=== PATIENT | female | born 1990 | race Caucasian/White ===

== ENCOUNTER → 2017-08-17 10:22 | Outpatient (CLI) | payer MEDICAID, SELFPAY ==
[2017-08-17 16:01] LABS: ALB/GLOB Ratio 1.1 RATIO (0.9-2.4); AST(SGOT) 10 U/L (15-37); Alanine Aminotransfer ALT/SGPT 19 U/L (13-56); Albumin, Serum 4.1 g/dL (3.2-5.0); Alkaline Phosphatase 109 U/L (45-117); Anion Gap 7 (5-15); BUN 15 mg/dL (7-18); BUN/Creat Ratio 24.9 RATIO (10-20); Calcium,Total 8.6 mg/dL (8.5-10.1); Chloride 106 mmol/L (98-107); Cholesterol 216 mg/dL (200); EST Glomerular Filtration Rate 126 mL/min (>60); Est Glom Filt Rate - Afr Amer 152 mL/min (>60); Globulin 3.6 g/dL (2.2-4.2); Glucose 75 mg/dL (74-106); High Density Lipoprotein 75 mg/dL; Potassium 3.7 mmol/L (3.5-5.1); Protein, Total 7.7 g/dL (6.4-8.2); Sodium Level 138 mmol/L (136-145); Thyroid Stim Hormone (TSH) 0.97 uIU/mL (0.358-3.74); Triglycerides 62 mg/dL; Very Low Density Lipoprotein 12 mg/dL (5-40)
[2017-08-18 09:00] LABS: Insulin 2.6 mU/L (2.6-37.6)
== END ==
PROVIDERS: Family Provider Family Medicine; PCP Family Medicine; Visit Provider Family Medicine
DX: E16.2 Hypoglycemia, unspecified (principal)
CPT/HCPCS: 36415; 80053; 80061; 82533; 83525; 84443

== ENCOUNTER → 2018-03-13 14:45 | Outpatient (CLI) | payer MEDICAID, SELFPAY ==
[2018-03-13 17:48] LABS: hCG Titer Quant., Serum 4551 mIU/mL (<9 non-preg)
== END ==
PROVIDERS: Family Provider Family Medicine; PCP Family Medicine; Visit Provider Family Medicine
DX: N91.2 Amenorrhea, unspecified (principal)
CPT/HCPCS: 36415; 84702

== ENCOUNTER → 2018-04-11 18:49 | Outpatient (CLI) | payer MEDICAID, SELFPAY ==
[2018-04-11 20:25] LABS: Chlamydia Trachomatis by PCR Negative (Negative); Neisserai gonorrhoeae by PCR Negative (Negative); Probe Check PASS; Sample Adequacy Control PASS; Specimen Processing Control PASS
[2018-04-19 13:51] LABS: HPV Reflexed? NOT INDICATED
== END ==
PROVIDERS: Referring Provider Obstetrics & Gynecology; Visit Provider Obstetrics & Gynecology
DX: Z12.4 Encounter for screening for malignant neoplasm of cervix (principal); Z11.3 Encounter for screening for infections with a predominantly sexual mode of transmission
CPT/HCPCS: 87491; 87591; 88175; G0145

== ENCOUNTER → 2018-04-25 14:11 | Outpatient (CLI) | payer MEDICAID, SELFPAY ==
[2018-04-25 15:52] LABS: Color, Urine Yellow (Yellow); Glucose, Dipstick Normal (Normal); Ketone-Dipstick Negative (Negative); Leukocyte Esterase-Dipstick Negative /ul (Negative); Nitrite-Dipstick Negative (Negative); Occult Blood-Urine Negative /ul (Negative); Protein-Dipstick Negative (Negative); Specific Gravity, Urine 1.015 (1.002-1.030); Urine Bilirubin Dipstick Negative (Negative); Urine Clarity Clear (Clear); Urine Urobilinogen Normal (Normal); Urine pH 6.5 (5.0 - 8.0)
[2018-04-25 15:58] LABS: Absolute Lymphocyte Count 1.31 X10^3/ul (0.83-4.51); Absolute Neutrophil Count 2.6 X10^3/uL (2.0-7.7); Basophil# 0.01 X10^3/uL; Basophil% 0.2 % (0-1); Eosinophil# 0.01 X10^3/uL; Eosinophils% 0.2 % (0-5); Hematocrit 39.3 % (37-47); Hemoglobin 12.8 g/dl (12.0-15.0); Lymphocyte # 1.31 X10^3/ul (4.0); Lymphocyte % 32.2 % (19-41); Mean Corp Hgb Conc 32.6 g/gl (32-36); Mean Platelet Vol. 10.7 fl (6.2-12.0); Monocyte# 0.16 X10^3/uL; Monocyte% 3.9 % (0-10); Neutrophil # 2.58 X10^3/uL (2.7-7.7); Neutrophil % 63.5 % (47-70); Platelet Count 186 K/mm3 (150-450); RBC Distribution Width CV 14.1 % (11.6-14.6); RBC Distribution Width SD 43.9 fl (35.1-43.9); Red Blood Count 4.57 M/mm3 (4.2-5.4); White Blood Count 4.1 K/mm3 (4.4-11.0)
[2018-04-25 16:01] LABS: POSITIVE COUNT NO; POSITIVE DIFFERENTIAL NO; POSITIVE MORPHOLOGY NO
[2018-04-25 16:08] LABS: COTININE Drug Screen Negative (<200 ng/mL)
[2018-04-25 16:13] LABS: Amphetamine Urine VISTA NEGATIVE (<1000 ng/mL); Barbiturate Urine VISTA POSITIVE (< 200 ng/mL); Benzodiazepine Urine VISTA NEGATIVE (< 200 ng/mL); Cocaine Urine VISTA NEGATIVE (< 300 ng/mL); Ecstacy Urine VISTA NEGATIVE (< 500 ng/mL); Methadone Urine VISTA NEGATIVE (< 300 ng/mL); PCP Urine VISTA NEGATIVE (< 25 ng/mL); THC Urine VISTA NEGATIVE (< 50 ng/mL); Vista UDS pH Range 6
[2018-04-25 16:51] LABS: HIV - WCH Non-Reactive (Nonreactive); Rubella IgG 223.9 IU/mL
[2018-04-27 04:13] LABS: Prenatal RPR NONREACTIVE (NONREACTIVE)
[2018-04-27 15:34] LABS: HEPATITIS B SURFACE AG Negative (Negative); Hep C Antibodies <0.1 s/co ratio (0.0-0.9)
== END ==
PROVIDERS: Visit Provider Obstetrics & Gynecology
DX: Z34.81 Encounter for supervision of other normal pregnancy, first trimester (principal)
CPT/HCPCS: 36415; 80307; 81002; 84443; 85025; 86703; 86762; 86803; 87340

== ENCOUNTER → 2018-04-26 09:32 | Outpatient (CLI) | payer MEDICAID, SELFPAY ==
[2018-04-26 12:16] LABS: T4 Free Direct 1.08 ng/dL (0.76-1.46)
== END ==
PROVIDERS: Visit Provider Family Medicine
DX: R79.89 Other specified abnormal findings of blood chemistry (principal)
CPT/HCPCS: 36415; 84439; 84443

== ENCOUNTER 2018-06-11 09:40 | Emergency (ER) | payer MEDICAID, SELFPAY ==
[2018-06-11 09:41] VITALS: BP 143/88; PULSE 100; RESP 24; TEMP 36.6; O2SAT 100; BMI 26.4
--- NOTE | 2018-06-11 10:04 | ED.VISSUMM ---
- ER Visit Summary Date of Service: 06/11/18 Chief Complaint: Headache History of Present Illness: The patient is a 28 F who is 18 weeks and has history of migraine headaches who presents for 2 days of a headache. Onset was 2 days ago and is gradually worsened. Headache is worse if patient bends forward. Patient tried her abortive therapy with Fioricet x2 doses yesterday without any relief. She is having intermittent left vision changes, described as the vision going in and out. She states it is like tunnel vision but she has not had complete loss of vision in that eye. She had a temperature of 100 degrees yesterday. She has nausea but does not know if that is due to morning sickness or her headache. No abdominal pain, vomiting, weakness or numbness in the arms or legs. Patient states this is not a typical migraine for her. Physical Examination: Vital signs: afebrile, hemodynamically stable, no hypoxia on room air General: well nourished, well developed, in bed with the lights on, appears uncomfortable Skin: warm, dry, no rash, no pallor HEENT: normocephalic and atraumatic; PERRL, EOMI, mild left ptosis, dural conjunctival injection, moist mucous membranes, no facial droop, neck is mildly tender on the left, supple, full active range of motion, no lymphadenopathy, no meningismus Cardiovascular: Tachycardic rate and rhythm without murmurs, no peripheral edema, 2+ pulses all distal extremities Respiratory: No increased work of breathing, lungs are clear to auscultation bilaterally, no rales, rhonchi or wheezing Abdominal: Abdomen is soft, gravid, nontender with normoactive bowel sounds, no guarding or rebound, no masses MSK: Moves all extremities, no deformities, normal strength Neuro: Awake and alert, oriented ?4. No facial droop, sensation and motor function intact and symmetric, normal gait, no visual field deficits, blurry vision left eye Test Results: Abnormal Lab Results 06/11/18 06/11/18 06/11/18 10:15 10:15 10:20 WBC 4.2 L RBC 4.12 L Hgb 11.8 L Hct 34.9 L MCV 84.7 MCH 28.6 MCHC 33.8 RDW 13.7 RDW Differential 42.1 Plt Count 144 L MPV 10.5 Immature Gran % (Auto) 0.000 Neut % (Auto) 67.8 Lymph % (Auto) 26.3 [place] % (Auto) 5.5 Eos % (Auto) 0.2 Baso % (Auto) 0.2 Absolute Neuts (auto) 2.8 Absolute Lymphs (auto) 1.10 Total Counted Not Reportable Sodium 138 Potassium 3.9 Chloride 110 H Carbon Dioxide 21.0 Anion Gap 7 BUN 9 Creatinine 0.48 L Estim Creat Clear Calc 149.33 Est GFR (MDRD) Af Amer 197 Est GFR (MDRD) Non-Af 163 BUN/Creatinine Ratio 18.8 Glucose 86 Calcium 8.5 Total Bilirubin 0.20 AST 17 ALT 15 Alkaline Phosphatase 64 Total Protein 6.5 Albumin 2.8 L Globulin 3.7 Albumin/Globulin Ratio 0.8 L Urine Color Yellow Urine Clarity Cloudy Urine pH 6.0 Ur Specific [place] 1.020 Urine Protein Negative Urine Glucose (UA) Normal Urine Ketones 5 H Urine Occult Blood Negative Urine Nitrite Negative Urine Bilirubin Negative Urine Urobilinogen 1 H Ur Leukocyte Esterase 100 H Urine RBC 0 SEEN Urine WBC 0-5 SEEN Ur Squamous Epith Cells 25-50 SEEN Urine Bacteria 2+ Urine Mucus 1+ Clinical Impression(s) from Imaging Studies Brain MRI 06/11/18 10:18 IMPRESSION: Normal unenhanced MRI of the brain. Electronically Signed: Sue Huertas MD at 13:38 EST Tel , Service support , Brain MRI 06/11/18 10:18 IMPRESSION: Normal unenhanced MRV of the brain. Electronically Signed: Sue Huertas MD at 13:39 EST Tel , Service support , Medications Given Discontinued Medications Diphenhydramine HCl (Benadryl) 25 mg IV X1 ONE Stop: 06/11/18 10:03 Last Admin: 06/11/18 10:17 Dose: 25 mg Sodium Chloride () 1,000 mls @ 999 mls/hr IV .Q1H1M ONE Stop: 06/11/18 11:02 Last Admin: 06/11/18 10:18 Dose: 999 mls/hr Metoclopramide HCl (Reglan) 10 mg IV X1 ONE Stop: 06/11/18 10:03 Last Admin: 06/11/18 10:17 Dose: 10 mg Emergency Department Course and Treatment: Patient presents with a headache with a left visual changes and is 18 weeks . This raises concern for cerebral venous thrombosis. Migraine headache is on the differential, however this is a typical for patient's migraines. She was given IV fluids for hydration, Benadryl and Reglan for treatment of the headache. Patient is mildly hypertensive, but is prior to when preeclampsia would be considered a concern. Labs were performed to look for any possible hepatic derangements or proteinuria. Concern for possible venous thrombosis was discussed with neurologist Dr. Gottlieb. He recommended an MRI/MRV be performed. This test was ordered, however the radiation protection technician stated OB permission must be obtained to do the study. Patient was discussed with radiologist Dr. Springer who approved the test. radiation protection technician still refused to do the study without OB permission. Thus Dr. Purcell was consulted, and gave permission for the MRI/MRV. Labs showed no leukocytosis or significant anemia. Platelets mildly low, but consistent with patient's prior labs. No electrolyte derangements or hepatic derangements. Urine was negative for proteinuria. It was highly contaminated with epithelial cells and had 2+ bacteria, which is likely due to the skin contamination rather than bacteriuria that would require antibiotic treatment in a female. Dry/MRV showed no acute process, including no venous thrombosis. On reevaluation patient's left eye pain, ptosis, and vision changes had completely resolved and her headache had improved. She was still having a headache and was offered IV magnesium or steroids for further treatment. She declined and stated she would follow-up with her doctor if she needed any further medications. She wanted to go home and rest. Patient's workup including the normal brain imaging makes her headache most consistent with a migraine. Patient discharged home in improved condition and is to follow-up with her family doctor and OB for reevaluation. Treatment Plan: [] Disposition: [] Impression: Migraine headache, second-trimester This note was generated with [employer] software. It may contain incorrect words, spelling, and punctuation that were not noted in review of the chart prior to signing ED Disposition - Plan for ED Patient: Disposition: Home or Assisted Living Chief Complaint: Headache Instructions: ED Headache Migraine Referrals: Mikael Purcell MD [STAFF PHYSICIAN] - 1-2 Days if not improving Tam Bailey [Primary Care Provider] - 1-2 Days if not improving Additional Instructions: Please follow-up with your doctor in 1-2 days if you are not having improvement in your headache. If you have any worsening of your headache or any new concerning symptoms, return immediately to the emergency department for another evaluation.
--- NOTE | 2018-06-11 10:10 | ED.DCSUM_ITS ---
- ER Visit Summary Date of Service: 06/11/18 Chief Complaint: Headache History of Present Illness: The patient is a 28 F who is 18 weeks and has history of migraine headaches who presents for 2 days of a headache. Onset was 2 days ago and is gradually worsened. Headache is worse if patient bends forward. Patient tried her abortive therapy with Fioricet x2 doses yesterday without any relief. She is having intermittent left vision changes, described as the vision going in and out. She states it is like tunnel vision but she has not had complete loss of vision in that eye. She had a temperature of 100 degrees yesterday. She has nausea but does not know if that is due to morning sickness or her headache. No abdominal pain, vomiting, weakness or numbness in the arms or legs. Patient states this is not a typical migraine for her. Physical Examination: Vital signs: afebrile, hemodynamically stable, no hypoxia on room air General: well nourished, well developed, in bed with the lights on, appears uncomfortable Skin: warm, dry, no rash, no pallor HEENT: normocephalic and atraumatic; PERRL, EOMI, mild left ptosis, dural conjunctival injection, moist mucous membranes, no facial droop, neck is mildly tender on the left, supple, full active range of motion, no lymphadenopathy, no meningismus Cardiovascular: Tachycardic rate and rhythm without murmurs, no peripheral edema, 2+ pulses all distal extremities Respiratory: No increased work of breathing, lungs are clear to auscultation bilaterally, no rales, rhonchi or wheezing Abdominal: Abdomen is soft, gravid, nontender with normoactive bowel sounds, no guarding or rebound, no masses MSK: Moves all extremities, no deformities, normal strength Neuro: Awake and alert, oriented ?4. No facial droop, sensation and motor function intact and symmetric, normal gait, no visual field deficits, blurry vision left eye Test Results: Abnormal Lab Results 06/11/18 06/11/18 06/11/18 10:15 10:15 10:20 WBC 4.2 L RBC 4.12 L Hgb 11.8 L Hct 34.9 L MCV 84.7 MCH 28.6 MCHC 33.8 RDW 13.7 RDW Differential 42.1 Plt Count 144 L MPV 10.5 Immature Gran % (Auto) 0.000 Neut % (Auto) 67.8 Lymph % (Auto) 26.3 [place] % (Auto) 5.5 Eos % (Auto) 0.2 Baso % (Auto) 0.2 Absolute Neuts (auto) 2.8 Absolute Lymphs (auto) 1.10 Total Counted Not Reportable Sodium 138 Potassium 3.9 Chloride 110 H Carbon Dioxide 21.0 Anion Gap 7 BUN 9 Creatinine 0.48 L Estim Creat Clear Calc 149.33 Est GFR (MDRD) Af Amer 197 Est GFR (MDRD) Non-Af 163 BUN/Creatinine Ratio 18.8 Glucose 86 Calcium 8.5 Total Bilirubin 0.20 AST 17 ALT 15 Alkaline Phosphatase 64 Total Protein 6.5 Albumin 2.8 L Globulin 3.7 Albumin/Globulin Ratio 0.8 L Urine Color Yellow Urine Clarity Cloudy Urine pH 6.0 Ur Specific [place] 1.020 Urine Protein Negative Urine Glucose (UA) Normal Urine Ketones 5 H Urine Occult Blood Negative Urine Nitrite Negative Urine Bilirubin Negative Urine Urobilinogen 1 H Ur Leukocyte Esterase 100 H Urine RBC 0 SEEN Urine WBC 0-5 SEEN Ur Squamous Epith Cells 25-50 SEEN Urine Bacteria 2+ Urine Mucus 1+ Clinical Impression(s) from Imaging Studies Brain MRI 06/11/18 10:18 IMPRESSION: Normal unenhanced MRI of the brain. Electronically Signed: Sue Huertas MD at 13:38 EST Tel , Service support , Brain MRI 06/11/18 10:18 IMPRESSION: Normal unenhanced MRV of the brain. Electronically Signed: Sue Huertas MD at 13:39 EST Tel , Service support , Medications Given Discontinued Medications Diphenhydramine HCl (Benadryl) 25 mg IV X1 ONE Stop: 06/11/18 10:03 Last Admin: 06/11/18 10:17 Dose: 25 mg Sodium Chloride () 1,000 mls @ 999 mls/hr IV .Q1H1M ONE Stop: 06/11/18 11:02 Last Admin: 06/11/18 10:18 Dose: 999 mls/hr Metoclopramide HCl (Reglan) 10 mg IV X1 ONE Stop: 06/11/18 10:03 Last Admin: 06/11/18 10:17 Dose: 10 mg Emergency Department Course and Treatment: Patient presents with a headache with a left visual changes and is 18 weeks . This raises concern for cerebral venous thrombosis. Migraine headache is on the differential, however this is a typical for patient's migraines. She was given IV fluids for hydration, Benadryl and Reglan for treatment of the headache. Patient is mildly hypertensive, but is prior to when preeclampsia would be considered a concern. Labs were performed to look for any possible hepatic derangements or proteinuria. Concern for possible venous thrombosis was discussed with neurologist Dr. Gottlieb. He recommended an MRI/MRV be performed. This test was ordered, however the deburr technician stated OB permission must be obtained to do the study. Patient was discussed with radiologist Dr. Springer who approved the test. deburr technician still refused to do the study without OB permission. Thus Dr. Purcell was consulted, and gave permission for the MRI/MRV. Labs showed no leukocytosis or significant anemia. Platelets mildly low, but consistent with patient's prior labs. No electrolyte derangements or hepatic derangements. Urine was negative for proteinuria. It was highly contaminated with epithelial cells and had 2+ bacteria, which is likely due to the skin contamination rather than bacteriuria that would require antibiotic treatment in a female. Dry/MRV showed no acute process, including no venous thrombosis. On reevaluation patient's left eye pain, ptosis, and vision changes had completely resolved and her headache had improved. She was still having a headache and was offered IV magnesium or steroids for further treatment. She declined and stated she would follow-up with her doctor if she needed any further medications. She wanted to go home and rest. Patient's workup including the normal brain imaging makes her headache most consistent with a migraine. Patient discharged home in improved condition and is to follow-up with her family doctor and OB for reevaluation. Treatment Plan: [] Disposition: [] Impression: Migraine headache, second-trimester This note was generated with [employer] software. It may contain incorrect words, spelling, and punctuation that were not noted in review of the chart prior to signing ED Disposition - Plan for ED Patient: Disposition: Home or Assisted Living Chief Complaint: Headache Instructions: ED Headache Migraine Referrals: Mikael Purcell MD [STAFF PHYSICIAN] - 1-2 Days if not improving Tam Bailey [Primary Care Provider] - 1-2 Days if not improving Additional Instructions: Please follow-up with your doctor in 1-2 days if you are not having improvement in your headache. If you have any worsening of your headache or any new concerning symptoms, return immediately to the emergency department for another evaluation.
[2018-06-11] MEDS: DiphenhydrAMINE 50 MG/ML Syringe 25 MG IV (10:17)
[2018-06-11] MEDS: Metoclopramide 10 MG/2 ML Vial IV (10:17)
[2018-06-11] MEDS: 0.9% Normal Saline 1,000 ML 999 ML IV (10:18)
--- NOTE | 2018-06-11 10:18 | MRI_ITS ---
STUDY: MRI BRAIN WITHOUT CONTRAST REASON FOR EXAM: Female, 28 years old. L SIDED HEADACHE WITH INTERMITTENT VISION LOSS, 18 WEEKS TECHNIQUE: Standardized multiplanar fat and water weighted pulse sequences were obtained. COMPARISON: None. FINDINGS: Normal size of the ventricles and extra-axial spaces for the patient's age. Normal white matter tracts of the supratentorial brain. Normal bilateral basal ganglia. Normal thalami. There is no extra-axial fluid accumulation. Normal flow voids within the major intracranial circulation suggesting patency by spin echo criteria. Normal sella turcica, pituitary gland, infundibular stalk, optic chiasm and hypothalamus. Normal tectal plate and pineal gland. Normal midbrain, elsa and medulla. Normal cerebellum. Normal basal cisterns. Normal bilateral temporal bones. Normal bilateral internal auditory canals. No demonstrated orbital abnormality, within the constraints of a routine brain study. Normal visualized paranasal sinuses. Normal calvarium and skull base. Normal visualized soft tissue structures. Normal visualized upper cervical spine. MRI/Brain without Contrast IMPRESSION: Normal unenhanced MRI of the brain. Electronically Signed: Sue Huertas MD at 13:38 EST Tel , Service support ,
--- NOTE | 2018-06-11 10:18 | MRI_ITS ---
STUDY: EXAMINATION - MRV BRAIN WITHOUT CONTRAST REASON FOR EXAM: Female, 28 years old. L SIDED HEADACHE WITH INTERMITTENT VISION LOSS, 18 WEEKS TECHNIQUE: 3D [id number] (TOF) imaging was performed in a bella MRI scanner. COMPARISON: None. FINDINGS: Normal flow within the superior sagittal sinus. Normal flow within the superficial cortical veins. Normal flow within the paired internal cerebral veins, vein of Tru and straight sinus. Normal flow within the bilateral transverse and sigmoid sinuses. Normal flow within the bilateral jugular bulbs. MRI/MRV Head Without Contrast IMPRESSION: Normal unenhanced MRV of the brain. Electronically Signed: Sue Huertas MD at 13:39 EST Tel , Service support ,
[2018-06-11 10:26] VITALS: BP 140/76
[2018-06-11 10:26] LABS: Red Blood Cells-Urine 0 SEEN /hpf (0-5)
[2018-06-11 10:30] LABS: Color, Urine Yellow (Yellow); Glucose, Dipstick Normal (Normal); Ketone-Dipstick 5 mg/dl (Negative); Leukocyte Esterase-Dipstick 100 /ul (Negative); Nitrite-Dipstick Negative (Negative); Occult Blood-Urine Negative /ul (Negative); Protein-Dipstick Negative (Negative); Urine Bilirubin Dipstick Negative (Negative); Urine Clarity Cloudy (Clear); Urine Urobilinogen 1 mg/dl (Normal)
[2018-06-11 10:31] LABS: Absolute Neutrophil Count 2.8 X10^3/uL (2.0-7.7); Basophil# 0.01 X10^3/uL; Basophil% 0.2 % (0-1); Eosinophil# 0.01 X10^3/uL; Eosinophils% 0.2 % (0-5); Hematocrit 34.9 % (37-47); Hemoglobin 11.8 g/dl (12.0-15.0); Lymphocyte % 26.3 % (19-41); Mean Corp Hgb Conc 33.8 g/gl (32-36); Mean Corpuscular Hgb 28.6 pg (27.0-32.0); Mean Corpuscular Volume 84.7 fL (81-99); Mean Platelet Vol. 10.5 fl (6.2-12.0); Monocyte# 0.23 X10^3/uL; Monocyte% 5.5 % (0-10); Neutrophil # 2.83 X10^3/uL (2.7-7.7); Neutrophil % 67.8 % (47-70); POSITIVE COUNT NO; POSITIVE DIFFERENTIAL NO; POSITIVE MORPHOLOGY NO; Platelet Count 144 K/mm3 (150-450); RBC Distribution Width CV 13.7 % (11.6-14.6); RBC Distribution Width SD 42.1 fl (35.1-43.9); Red Blood Count 4.12 M/mm3 (4.2-5.4); White Blood Count 4.2 K/mm3 (4.4-11.0)
[2018-06-11 10:36] LABS: White Blood Cells 0-5 SEEN /hpf (0-5)
[2018-06-11 10:37] LABS: Bacteria 2+ /hpf (None Seen); Mucous, Urine 1+ /hpf (<or=2+); Squamous Epithelial Cells - UA 25-50 SEEN /hpf (5-10)
[2018-06-11 10:46] LABS: ALB/GLOB Ratio 0.8 RATIO (0.9-2.4); AST(SGOT) 17 U/L (15-37); Alanine Aminotransfer ALT/SGPT 15 U/L (13-56); Albumin, Serum 2.8 g/dL (3.2-5.0); Alkaline Phosphatase 64 U/L (45-117); Anion Gap 7 (5-15); BUN 9 mg/dL (7-18); BUN/Creat Ratio 18.8 RATIO (10-20); Calcium,Total 8.5 mg/dL (8.5-10.1); Chloride 110 mmol/L (98-107); Creatinine, Serum 0.48 mg/dL (0.55-1.02); EST Glomerular Filtration Rate 163 mL/min (>60); Est Glom Filt Rate - Afr Amer 197 mL/min (>60); Estimated Creatinine Clearance 149.33 ml/min; Globulin 3.7 g/dL (2.2-4.2); Glucose 86 mg/dL (74-106); Potassium 3.9 mmol/L (3.5-5.1); Protein, Total 6.5 g/dL (6.4-8.2); Sodium Level 138 mmol/L (136-145)
--- NOTE | 2018-06-11 10:49 | ED.RN ---
PER RECOMMENDATION OF NEUROLOGIST AND ED PHYSICIAN, MRI WAS ORDERED FOR PT. 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 RADIOLOGIST WAS CONTACTED AND HE STATED THAT IMAGING WAS SAFE FOR FETUS AND THAT IMAGING WAS ALLOWABLE. MRI MAINTAINED THAT THE OBGYN STILL NEEDED TO BE CONSULTED BEFORE PT COULD GO TO MRI. DR. SANCHEZ WAS PAGED AND VERBAL PERMISSION WAS GIVEN FOR PT TO RECEIVE MRI.
[2018-06-11 14:25] VITALS: RESP 18
--- NOTE | 2018-06-11 14:50 | ED.DEP ---
ED Disposition - Plan for ED Patient: Disposition: Home or Assisted Living Chief Complaint: Headache Instructions: ED Headache Migraine Referrals: Tam Bailey [Primary Care Provider] - 1-2 Days if not improving Mikael Purcell MD [STAFF PHYSICIAN] - 1-2 Days if not improving Additional Instructions: Please follow-up with your doctor in 1-2 days if you are not having improvement in your headache. If you have any worsening of your headache or any new concerning symptoms, return immediately to the emergency department for another evaluation.
[2018-06-11 14:56] VITALS: BP 131/76; PULSE 76; RESP 16; O2SAT 97
[2018-06-11 15:07] VITALS: BP 117/74; PULSE 71; RESP 18; O2SAT 99
[2018-06-11 15:10] VITALS: BP 117/74; PULSE 71; RESP 18; O2SAT 99
== END 2018-06-11 15:10 | disposition home or self-care (01) ==
PROVIDERS: Emergency Provider Emergency Medicine; Family Provider Family Medicine; PCP Family Medicine
DX: O99.352 Diseases of the nervous system complicating pregnancy, second trimester (principal); G43.909 Migraine, unspecified, not intractable, without status migrainosus; Z3A.18 18 weeks gestation of pregnancy
CPT/HCPCS: 70544; 70551; 80053; 81001; 85025; 99285; J7030; A4216

== ENCOUNTER 2018-07-23 08:53 | Outpatient (RCR) | payer MEDICAID, SELFPAY ==
[2018-07-16 18:02] LABS: hCG Titer Quant., Serum 64 mIU/mL (<9 non-preg)
[2018-07-23 12:24] LABS: hCG Titer Quant., Serum 23 mIU/mL (<9 non-preg)
== END 2018-08-02 23:59 ==
LOC: BFHLAB 08:53
PROVIDERS: Family Provider Family Medicine; PCP Family Medicine; Referring Provider Obstetrics & Gynecology; Visit Provider Family Medicine
DX: O02.0 Blighted ovum and nonhydatidiform mole (principal)
CPT/HCPCS: 36415; 84702

== ENCOUNTER → 2018-07-30 08:42 | Outpatient (CLI) | payer MEDICAID, SELFPAY ==
[2018-07-30 12:25] LABS: hCG Titer Quant., Serum 12 mIU/mL (<9 non-preg)
== END ==
PROVIDERS: Family Provider Family Medicine; PCP Family Medicine; Visit Provider Family Medicine
DX: O02.0 Blighted ovum and nonhydatidiform mole (principal); Z3A.00 Weeks of gestation of pregnancy not specified
CPT/HCPCS: 36415; 84702

== ENCOUNTER 2018-08-13 07:55 | Outpatient (RCR) | payer MEDICAID, SELFPAY ==
[2018-07-30 16:40] VITALS: BMI 26.4
[2018-08-06 12:49] LABS: hCG Titer Quant., Serum 6 mIU/mL (<9 non-preg)
[2018-08-13 13:14] LABS: hCG Titer Quant., Serum 4 mIU/mL (<9 non-preg)
[2018-08-20 12:55] LABS: hCG Titer Quant., Serum 2 mIU/mL (<9 non-preg)
[2018-08-27 13:04] LABS: hCG Titer Quant., Serum 2 mIU/mL (<9 non-preg)
[2018-09-10 13:45] LABS: hCG Titer Quant., Serum < 1 mIU/mL (<9 non-preg)
== END 2018-08-30 23:59 ==
LOC: BFHLAB 07:55
PROVIDERS: Obstetrics & Gynecology; Family Provider Family Medicine; PCP Family Medicine; Visit Provider Family Medicine
DX: O02.0 Blighted ovum and nonhydatidiform mole (principal)
CPT/HCPCS: 36415; 84702

== ENCOUNTER 2018-09-04 10:14 | Outpatient (RCR) | payer MEDICAID, SELFPAY ==
[2018-07-30 16:40] VITALS: BMI 26.4
[2018-09-04 18:14] LABS: hCG Titer Quant., Serum 1 mIU/mL (<9 non-preg)
[2018-09-17 12:49] LABS: hCG Titer Quant., Serum < 1 mIU/mL (<9 non-preg)
[2018-09-24 10:56] LABS: hCG Titer Quant., Serum < 1 mIU/mL (<9 non-preg)
== END 2018-09-24 15:00 | disposition home or self-care (01) ==
LOC: BFHLAB 10:14
PROVIDERS: Family Provider Family Medicine; PCP Family Medicine; Visit Provider Family Medicine
DX: O02.0 Blighted ovum and nonhydatidiform mole (principal)
CPT/HCPCS: 36415; 84702

== ENCOUNTER → 2018-11-13 09:43 | Outpatient (CLI) | payer SELFPAY ==
[2018-07-30 16:40] VITALS: BMI 26.4
[2018-11-13 12:35] LABS: hCG Titer Quant., Serum < 1 mIU/mL (1-3)
== END ==
PROVIDERS: Family Provider Family Medicine; PCP Family Medicine; Visit Provider Family Medicine
DX: O02.0 Blighted ovum and nonhydatidiform mole (principal)
CPT/HCPCS: 36415; 84702

== ENCOUNTER → 2019-01-21 09:03 | Outpatient (CLI) | payer SELFPAY ==
[2018-07-30 16:40] VITALS: BMI 26.4
[2019-01-21 12:40] LABS: hCG Titer Quant., Serum < 1 mIU/mL (1-3)
== END ==
PROVIDERS: Family Provider Family Medicine; PCP Family Medicine; Visit Provider Family Medicine
DX: O02.0 Blighted ovum and nonhydatidiform mole (principal)
CPT/HCPCS: 36415; 84702

== ENCOUNTER → 2020-01-23 08:14 | Outpatient (CLI) | payer SELFPAY ==
[2018-07-30 16:40] VITALS: BMI 26.4
[2020-01-23 08:59] LABS: T4 Free Direct 0.83 ng/dL (0.76-1.46); Thyroid Stim Hormone (TSH) 0.71 uIU/mL (0.358-3.74)
== END ==
LOC: BFHLAB 08:15
PROVIDERS: PCP Family Medicine; Visit Provider Family Medicine
DX: R63.5 Abnormal weight gain (principal); R53.83 Other fatigue
CPT/HCPCS: 36415; 82533; 84439; 84443

== ENCOUNTER → 2020-10-19 14:13 | Outpatient (CLI) | payer MEDICAID, SELFPAY ==
[2018-07-30 16:40] VITALS: BMI 26.4
--- NOTE | 2020-10-19 14:16 | RAD_ITS ---
STUDY: X-RAY - LUMBAR SPINE REASON FOR EXAM: Female, 30 years old. LOW BACK PAIN TECHNIQUE: 5 view(s) of the lumbar spine were obtained including oblique views. COMPARISON: Comparison is made with prior study of 11/29/2011. FINDINGS: Normal lumbar lordosis. There is no substantial scoliosis. There is a normal alignment of the vertebrae. Normal vertebral bodies and endplates. Normal disc space heights. Degenerative changes of the sacroiliac joints more prominent on the right side. The soft tissue structures are unremarkable. RAD/L/S Spine Min 4 Views IMPRESSION: Normal x-ray examination of the lumbar spine. Degenerative changes of the sacroiliac joints bilaterally more prominent on the right side. Electronically Signed: Dalton Springer MD at 15:46 EDT , Service support ,
== END ==
PROVIDERS: PCP Family Medicine; Referring Provider Family Medicine; Visit Provider Family Medicine
DX: M54.5 Low back pain (principal)
CPT/HCPCS: 72110

== ENCOUNTER → 2020-10-27 09:23 | Outpatient (CLI) | payer MEDICAID, SELFPAY ==
[2018-07-30 16:40] VITALS: BMI 26.4
[2020-10-27 12:55] LABS: Erythrocyte Sedimentation Rate 5 mm/hr (0-30)
[2020-10-27 12:58] LABS: Absolute Neutrophil Count 1.4 X10^3/uL (2.0-7.7); Basophil# 0.01 X10^3/uL; Basophil% 0.3 % (0-1); Eosinophil# 0.02 X10^3/uL; Eosinophils% 0.7 % (0-5); Hematocrit 37.6 % (37-47); Hemoglobin 12.4 g/dL (12.0-15.0); Lymphocyte % 45.6 % (19-41); Mean Corpuscular Hgb 28.2 pg (27.0-32.0); Mean Corpuscular Volume 85.6 fL (81-99); Mean Platelet Vol. 10.7 fl (6.2-12.0); Monocyte# 0.22 X10^3/uL; Monocyte% 7.2 % (0-10); NRBC Flagged by Analyzer 0 % (0-5); Neutrophil # 1.41 X10^3/uL (2.7-7.7); Neutrophil % 45.9 % (47-70); Platelet Count 188 K/mm3 (150-450); RBC Distribution Width CV 12.8 % (11.6-14.6); Red Blood Count 4.39 M/mm3 (4.2-5.4); White Blood Count 3.1 K/mm3 (4.4-11.0)
[2020-10-27 13:41] LABS: ALB/GLOB Ratio 1.1 RATIO (0.9-2.4); AST(SGOT) 13 U/L (15-37); Alanine Aminotransfer ALT/SGPT 18 U/L (13-56); Albumin, Serum 3.9 g/dL (3.2-5.0); Alkaline Phosphatase 63 U/L (45-117); Anion Gap 7 (5-15); BUN 9 mg/dL (7-18); BUN/Creat Ratio 14.5 RATIO (10-20); CRP < 2.90 mg/L (0.0-3.0); Calcium,Total 8.9 mg/dL (8.5-10.1); Chloride 108 mmol/L (98-107); Creatinine, Serum 0.62 mg/dL (0.55-1.02); EST Glomerular Filtration Rate 119 mL/min (>60); Est Glom Filt Rate - Afr Amer 144 mL/min (>60); Globulin 3.5 g/dL (2.2-4.2); Glucose 85 mg/dL (74-106); Potassium 3.3 mmol/L (3.5-5.1); Protein, Total 7.4 g/dL (6.4-8.2); Rheumatoid Factor < 10.0 IU/mL (<15); Sodium Level 138 mmol/L (136-145); T4 Free Direct 0.94 ng/dL (0.76-1.46); Thyroid Stim Hormone (TSH) 0.67 uIU/mL (0.358-3.74)
[2020-10-27 14:05] LABS: Vitamin B12 350 pg/mL (211-911); Vitamin D,25 Hydroxy 15.8 ng/mL
[2020-10-28 17:13] LABS: ANTINUCLEAR ANTIBODIES DIRECT Negative (Negative)
[2020-11-02 16:59] LABS: HLA B27 Negative (.)
== END ==
PROVIDERS: PCP Family Medicine; Referring Provider Family Medicine; Visit Provider Family Medicine
DX: Z00.00 Encounter for general adult medical examination without abnormal findings (principal); R53.83 Other fatigue; M46.1 Sacroiliitis, not elsewhere classified; E27.40 Unspecified adrenocortical insufficiency
CPT/HCPCS: 36415; 80053; 81374; 82306; 82533; 82607; 84439; 84443; 85025; 85652; 86038; 86140; 86225; 86235; 86431

== ENCOUNTER → 2022-07-01 | Outpatient (CLI) | payer MEDICAID, SELFPAY ==
[2022-07-01 15:43] LABS: hCG Titer Quant., Serum 702 mIU/mL (1-3)
== END | disposition home or self-care (01) ==
LOC: MTLAB 13:56
PROVIDERS: PCP Family Medicine; Referring Provider Family Medicine; Visit Provider Family Medicine
DX: N91.2 Amenorrhea, unspecified (principal)
CPT/HCPCS: 36415; 84702

== ENCOUNTER → 2022-08-04 | Outpatient (CLI) | payer MEDICAID, SELFPAY ==
[2022-08-04 16:33] LABS: Protein, Urine (Random) 11.6 mg/dL (<11.9); Protein:Creat Ratio 76 mg/g CRE (0-200)
[2022-08-08 07:07] LABS: Chlamydia By Nucleic Acid AMP Negative (Negative)
[2022-08-08 08:32] LABS: Gonococcus By Nucleic Acid AMP Negative (Negative)
[2022-08-11 17:45] LABS: HPV APTIMA, High Risk Negative (Negative)
== END | disposition home or self-care (01) ==
LOC: LABSPEC 15:52
PROVIDERS: PCP Family Medicine; Referring Provider Obstetrics & Gynecology; Visit Provider Obstetrics & Gynecology
DX: Z34.90 Encounter for supervision of normal pregnancy, unspecified, unspecified trimester (principal); Z87.59 Personal history of other complications of pregnancy, childbirth and the puerperium
CPT/HCPCS: 82570; 84156; 87086; 87491; 87591; 87624; 88175; G0145

== ENCOUNTER → 2022-08-30 | Outpatient (CLI) | payer MEDICAID, SELFPAY ==
[2022-08-30 14:27] LABS: Absolute Lymphocyte Count 1.36 X10^3/uL (0.83-4.51); Absolute Neutrophil Count 3.4 X10^3/uL (2.0-7.7); Basophil# 0.01 X10^3/uL; Basophil% 0.2 % (0-1); Eosinophil# 0.02 X10^3/uL; Eosinophils% 0.4 % (0-5); Hemoglobin 11.8 g/dL (12.0-15.0); Lymphocyte # 1.36 X10^3/ul (0.83-4.51); Lymphocyte % 26.9 % (19-41); Mean Corp Hgb Conc 34.7 g/dL (32-36); Mean Corpuscular Hgb 29.6 pg (27.0-32.0); Mean Corpuscular Volume 85.4 fL (81-99); Mean Platelet Vol. 9.4 fl (6.2-12.0); Monocyte# 0.25 X10^3/uL; Monocyte% 4.9 % (0-10); NRBC Flagged by Analyzer 0 % (0-5); Neutrophil # 3.41 X10^3/uL (2.7-7.7); Neutrophil % 67.4 % (47-70); Platelet Count 202 K/mm3 (150-450); RBC Distribution Width CV 12.7 % (11.6-14.6); RBC Distribution Width SD 39.1 fl (35.1-43.9); Red Blood Count 3.98 M/mm3 (4.2-5.4); White Blood Count 5.1 K/mm3 (4.4-11.0)
[2022-08-30 15:08] LABS: ALB/GLOB Ratio 0.9 RATIO (0.9-2.4); AST(SGOT) 16 U/L (15-37); Alanine Aminotransfer ALT/SGPT 15 U/L (13-56); Albumin, Serum 3.5 g/dL (3.2-5.0); Alkaline Phosphatase 64 U/L (45-117); Anion Gap 10 (5-15); BUN 8 mg/dL (7-18); BUN/Creat Ratio 16.3 RATIO (10-20); Calcium,Total 9.5 mg/dL (8.5-10.1); Chloride 107 mmol/L (98-107); Creatinine, Serum 0.49 mg/dL (0.55-1.02); EST Glomerular Filtration Rate 154 mL/min (>60); Est Glom Filt Rate - Afr Amer 186 mL/min (>60); Globulin 3.9 g/dL (2.2-4.2); Glucose 86 mg/dL (74-106); Potassium 3.5 mmol/L (3.5-5.1); Protein, Total 7.4 g/dL (6.4-8.2); Sodium Level 139 mmol/L (136-145)
[2022-08-30 15:15] LABS: NATERA MAILED SPECIMEN
[2022-08-30 16:21] LABS: HIV - WCH Non-Reactive (Nonreactive); Hepatitis B Surface Antigen Non-Reactive (Nonreactive); Hepatitis C Antibody Non-Reactive (Nonreactive); Rubella IgG Reactive (Nonreactive); Syphilis Antibodies Non-reactive
== END | disposition home or self-care (01) ==
LOC: PAVLAB 14:11
PROVIDERS: PCP Family Medicine; Referring Provider Obstetrics & Gynecology; Visit Provider Obstetrics & Gynecology
DX: Z34.81 Encounter for supervision of other normal pregnancy, first trimester (principal); Z34.90 Encounter for supervision of normal pregnancy, unspecified, unspecified trimester
CPT/HCPCS: 36415; 80053; 85025; 86703; 86762; 86780; 86803; 86850; 86900; 86901; 87340

== ENCOUNTER → 2022-12-16 | Outpatient (CLI) | payer MEDICAID, SELFPAY ==
[2022-12-16 13:37] LABS: Absolute Lymphocyte Count 0.94 X10^3/uL (0.83-4.51); Absolute Neutrophil Count 3.4 X10^3/uL (2.0-7.7); Basophil# 0.01 X10^3/uL; Basophil% 0.2 % (0-1); Eosinophil# 0.03 X10^3/uL; Eosinophils% 0.6 % (0-5); Hematocrit 29.9 % (37-47); Lymphocyte # 0.94 X10^3/ul (0.83-4.51); Lymphocyte % 20.1 % (19-41); Mean Corp Hgb Conc 33.4 g/dL (32-36); Mean Corpuscular Hgb 28.7 pg (27.0-32.0); Mean Corpuscular Volume 85.9 fL (81-99); Mean Platelet Vol. 9.7 fl (6.2-12.0); Monocyte% 6.4 % (0-10); NRBC Flagged by Analyzer 0 % (0-5); Neutrophil # 3.38 X10^3/uL (2.7-7.7); Neutrophil % 72.3 % (47-70); Platelet Count 218 K/mm3 (150-450); RBC Distribution Width CV 13.2 % (11.6-14.6); RBC Distribution Width SD 40.8 fl (35.1-43.9); Red Blood Count 3.48 M/mm3 (4.2-5.4); White Blood Count 4.7 K/mm3 (4.4-11.0)
[2022-12-16 14:08] LABS: Glucose Challenge Gest 1H 50g 130 mg/dL (70-140)
[2022-12-16 14:45] LABS: HIV - WCH Non-Reactive (Nonreactive); Syphilis Antibodies Non-reactive
== END | disposition home or self-care (01) ==
LOC: LAB 13:05
PROVIDERS: PCP Family Medicine; Referring Provider Obstetrics & Gynecology; Visit Provider Obstetrics & Gynecology
DX: O26.899 Other specified pregnancy related conditions, unspecified trimester (principal); Z67.91 Unspecified blood type, Rh negative; Z3A.00 Weeks of gestation of pregnancy not specified
CPT/HCPCS: 36415; 82950; 85025; 86703; 86780

== ENCOUNTER → 2022-12-23 | Outpatient (CLI) | payer MEDICAID, SELFPAY | END | disposition home or self-care (01) | LOC: PAVLAB 09:46 | PROVIDERS: Obstetrics & Gynecology; PCP Family Medicine; Visit Provider Obstetrics & Gynecology | DX: O26.899 Other specified pregnancy related conditions, unspecified trimester (principal); Z67.91 Unspecified blood type, Rh negative; Z3A.00 Weeks of gestation of pregnancy not specified | CPT/HCPCS: 86850; 86870; 86900; 86901 ==

== ENCOUNTER → 2023-02-10 | Outpatient (CLI) | payer MEDICAID, SELFPAY | END | disposition home or self-care (01) | PROVIDERS: PCP Family Medicine; Referring Provider Obstetrics & Gynecology; Visit Provider Obstetrics & Gynecology | DX: O09.90 Supervision of high risk pregnancy, unspecified, unspecified trimester (principal); Z3A.00 Weeks of gestation of pregnancy not specified | CPT/HCPCS: 87081 ==

== ENCOUNTER → 2023-02-13 | Outpatient (CLI) | payer MEDICAID, SELFPAY ==
--- NOTE | 2023-02-13 14:28 | US_ITS ---
STUDY: SECOND AND THIRD TRIMESTER OBSTETRICAL ULTRASOUND - LIMITED REASON FOR EXAM: Female, 32 years old growth LMP: May 30, 2022. PRIOR ULTRASOUND: None. TECHNIQUE: TECHNICAL QUALITY: Adequate. FINDINGS: There is a single intrauterine fetus. The fetus is in a cephalic presentation. There is demonstrated cardiac activity with a heart rate of 143 bpm. There is a normal amniotic fluid volume. The largest amniotic fluid pocket measures 4.2 cm x 3.1 cm. The amniotic fluid index (SMITHA) is 14.8 cm. The placenta is anterior in location and is not low lying. There are Grade 2 placental changes. The cervical length was not measured due to the head position. BIOMETRY: BPD: 9.81 cm: 40 weeks, 1 days HC: 34.95 cm: 40 weeks, 5 days AC: 35.07 cm: 39 weeks, 0 days FL: 7.46 cm: 38 weeks, 1 days Age by LMP: 37 weeks, 0 days. VIN by LMP: March 06, 2023. age by prior US: 37 weeks, 4 days. VIN by prior US: March 02, 2023. age by current US: 39 weeks, 2 days. VIN by current US: February 18, 2023. Estimated weight: 3707 grams, +/- 556 grams, 95 percentile. US/OB Limited With Biometrics IMPRESSION: Single live think uterine gestation with a mean gestational age of 37 weeks and 4 days. The measurements obtained today fall within the upper limits of normal. Electronically Signed: Dalton Springer MD at 9:12 EDT ,
== END | disposition home or self-care (01) ==
LOC: US 14:27
PROVIDERS: PCP Family Medicine; Referring Provider Obstetrics & Gynecology; Visit Provider Obstetrics & Gynecology
DX: O36.60X0 Maternal care for excessive fetal growth, unspecified trimester, not applicable or unspecified (principal); Z3A.00 Weeks of gestation of pregnancy not specified
CPT/HCPCS: 76816

== ENCOUNTER 2023-02-28 05:30 | Inpatient (IN) | payer MEDICAID, SELFPAY ==
[2023-02-28] VITALS (18 sets, daily range): BP systolic 91–115; BP diastolic 39–78; PULSE 53–100; RESP 16–18; TEMP 36.1–37.2; O2SAT 96–100; BMI 34.2
[2023-02-28] MEDS: Lactated Ringers 1,000 ML 999 ML IV (05:55)
[2023-02-28 06:13] LABS: Absolute Lymphocyte Count 1.13 X10^3/uL (0.83-4.51); Absolute Neutrophil Count 2.7 X10^3/uL (2.0-7.7); Basophil# 0.01 X10^3/uL; Basophil% 0.2 % (0-1); Eosinophil# 0.02 X10^3/uL; Eosinophils% 0.5 % (0-5); Hematocrit 33.6 % (37-47); Hemoglobin 10.8 g/dL (12.0-15.0); Lymphocyte # 1.13 X10^3/ul (0.83-4.51); Lymphocyte % 27.5 % (19-41); Mean Corp Hgb Conc 32.1 g/dL (32-36); Mean Corpuscular Hgb 28.6 pg (27.0-32.0); Mean Corpuscular Volume 88.9 fL (81-99); Mean Platelet Vol. 11.2 fl (6.2-12.0); Monocyte# 0.28 X10^3/uL; Monocyte% 6.8 % (0-10); NRBC Flagged by Analyzer 0 % (0-5); Neutrophil # 2.66 X10^3/uL (2.7-7.7); Neutrophil % 64.8 % (47-70); Platelet Count 122 K/mm3 (150-450); RBC Distribution Width CV 15.4 % (11.6-14.6); RBC Distribution Width SD 50.6 fl (35.1-43.9); Red Blood Count 3.78 M/mm3 (4.2-5.4); White Blood Count 4.1 K/mm3 (4.4-11.0)
[2023-02-28] MEDS: Acetaminophen 500 MG Tablet 1000 MG PO ×3 (06:28→18:04)
[2023-02-28] MEDS: Lactated Ringers 1,000 ML 150 ML IV ×2 (07:00→12:10)
--- NOTE | 2023-02-28 07:12 | HP.PCM.OB_ITS ---
HPI - General General Date of Admission: 02/28/23 HPI Narrative AMALIA JOHNS, is a 32 y/o @ 39 weeks 1 day who presents to L&D for a repeat section. Maternal Data Information VIN Calculator Estimated Delivery Date Method Current WG Current Estimate 03/06/23 LMP (Certain) 39w 1d [facility] PFS Medical History Anxiety and depression Asthma History of molar Hx: UTI (urinary tract infection) depression Home Medications multivit-min no.71-iron fum 28 mg-folate no.1 1 mg-dha 300 mg capsule (PNV- [place]) cap PO 07/26/22 [History Last Taken 02/27/23 09:00] ferrous sulfate 325 mg (65 mg iron) tablet (FeroSul) 325 mg PO DAILY supplement #30 tabs 12/16/22 [Rx Last Taken 02/27/23 21:00] folic acid 1 mg tablet 3 mg (3 x 1 mg) PO DAILY #90 tabs 01/13/23 [Rx Last Taken Unknown] folic acid 1 mg tablet 3 mg PO DAILY molar 01/13/23 [History Last Taken 02/27/23 09:00] famotidine 40 mg tablet (Pepcid) 40 mg PO BID gerd #60 tabs 02/15/23 [Rx Last Taken 02/27/23 21:30] Allergy/AdvReac Type Severity Reaction Status Date / Time Penicillins Allergy Itching Verified 02/28/23 05:45 Family History Unknown Diabetes Surgical History delivery delivered dilation and evacuation History of dilation and curettage History of wisdom tooth extraction, class II edentulism Social History adopted: No household members: spouse and children housing: house number of children: 2 current occupational status: employed current occupation: babysitting current occupational exposures/hazards: No pets and animals: Yes (Not managing litterbox while ) pets and animals: cat(s) and dog(s) history of recent travel: No sexually active: Yes Smoking Status: Former smoker alcohol intake: current details: social- not while substance use type: does not use well-balanced diet: daily or most days caffeine: No eating out: 1-3 times/week during the past year weight has: remained stable what type of physical activity do you participate in: none stefany/buddhism: None seatbelt use: always do you feel safe at home: Yes additional social history: Manav- History 5 Elective abortions Hx Para 2 Spontaneous abortions 2 Hx # Term Pregnancies 2 Ectopic pregnancies Hx # Pregnancies Multiple births # of living children 2 Past Pregnancies Del. Date Name GA/Weeks Outcome Route Bth Weight Gen Labor Lgth Anesthesia Del Locatn Provider FOB Unknown 2014 Javi live - full term [facility] Unknown 2016 Nehemias live - full term [facility] 09/14/15 miscarriage @ 9 wks 07/03/17 Ruperto- miscarriage 21 wks Delivery Date: 07/03/17 Last Updated by: Liane Vargas molar and aneuploidy Visit Details Expected Delivery Route/Plan RLTCS discussed if interested. 47% chance of success. Plans Covid status: discussed Flu vaccine: discussed Tdap vaccine: [] Rhogam: [] LARC form signed: [] Problem list reviewed and updated with the most current plan of care details and appropriate orders placed. Relevant counseling for the gestational age provided. Continue routine care and follow up unless otherwise noted in visit notes/problem list details OB Flowsheet Initial Weight: 187 lb Date -?-?-?-?-?-?-?-?-?-?-?-?- EGA Weight BP Urine Prot -?-?-?-?-?-?-?-?-?-?-?-?- Glucose FHR FuHt Pres Dilation -?-?-?-?-?-?-?-?-?-?-?-?- Effaced St Visit Note 08/04/22 -?-?-?-?-?-?-?-?-?-?-?-?- 9w 3d 187 lb (+0 oz) 121/78 -?-?-?-?-?-?-?-?-?-?-?-?- 170 -?-?-?-?-?-?-?-?-?-?-?-?- SM- CRL 2.5 cm c ons with LMP 08/30/22 -?-?-?-?-?-?-?-?-?-?-?-?- 13w 1d 189 lb (+2 lb) 119/77 Negative -?-?-?-?-?-?-?-?-?-?-?-?- Negative 160 -?-?-?-?-?-?-?-?-?-?-?-?- SM- no vb crampi ng 09/27/22 -?-?-?-?-?-?-?-?-?-?-?-?- 17w 1d 187 lb 6 oz (+6 oz) 120/76 Negative -?-?-?-?-?-?-?-?-?-?-?-?- Negative 154 -?-?-?-?-?-?-?-?-?-?-?-?- MH-No Vb. Denies concerns. 10/25/22 -?-?-?-?-?-?-?-?-?-?-?-?- 21w 1d 192 lb 2 oz (+5 lb 2 oz) 112/80 Negative -?-?-?-?-?-?-?-?-?-?-?-?- Negative 146 -?-?-?-?-?-?-?-?-?-?-?-?- MH-No VB. Feelin g flutters. Struggling w other illnesses:cold, strep throat. Does in home daycare. Stressed PNV, good diet. 11/24/22 -?-?-?-?-?-?-?-?-?-?-?-?- 25w 3d 194 lb 6 oz (+7 lb 6 oz) 111/72 Negative -?-?-?-?-?-?-?-?-?-?-?-?- Negative 145 -?-?-?-?-?-?-?-?-?-?-?-?- JV- no lof, vagi nal bleeding, or dec fm. plan for gct and rhogam next visit. JV- no lof, vaginal bleeding , or dec fm. plan for gct and rhogam next visit. repeat section request sent. 12/16/22 -?-?-?-?-?-?-?-?-?-?-?-?- 28w 4d 195 lb (+8 lb) 112/72 Negative -?-?-?-?-?-?-?-?-?-?-?-?- Negative 135 29 -?-?-?-?-?-?-?-?-?-?-?-?- JV- rhogam and g ct today. no complaints. discussed that she wants to see if labor starts on it's own and if does wants to attempt . otherwise rpt section is scheduled. 12/30/22 -?-?-?-?-?-?-?-?-?-?-?-?- 30w 4d 194 lb 4 oz (+7 lb 4 oz) 114/70 Negative -?-?-?-?-?-?-?-?-?-?-?-?- Negative 140 31 -?-?-?-?-?-?-?-?-?-?-?-?- KW- +FM. No lof/ vb/ctx. had reaction to Tdap. still having discoloration of the arm. LARC done 01/13/23 -?-?-?-?-?-?-?-?-?-?-?-?- 32w 4d 195 lb 2 oz (+8 lb 2 oz) 110/70 Trace -?-?-?-?-?-?-?-?-?-?-?-?- Negative 142 33 -?-?-?-?-?-?-?-?-?-?-?-?- KW-+FM. no lof/v b/ctx. No concerns today. 01/27/23 -?-?-?-?-?-?-?-?-?-?-?-?- 34w 4d 198 lb 6 oz (+11 lb 6 oz) 110/71 Negative -?-?-?-?-?-?-?-?-?-?-?-?- Negative 145 35 -?-?-?-?-?-?-?-?-?-?-?-?- JV- pt is reques ting growth scan to help her make up her mind about vs rpt section. no lof, vaginal bleeding, or dec fm. 02/10/23 -?-?-?-?-?-?-?-?-?-?-?-?- 36w 4d 197 lb 8 oz (+10 lb 8 oz) 107/68 Negative -?-?-?-?-?-?-?-?-?-?-?-?- Negative 150 36 -?-?-?--?-?-?-?-?-?-?-?-?- SM- no vb lof go od fm no regular ctx gbs done 02/15/23 -?-?-?-?-?-?-?-?-?-?-?-?- 37w 2d 196 lb 8 oz (+9 lb 8 oz) 105/57 -?-?-?-?-?-?-?-?-?-?-?-?- 145 38 -?-?-?-?-?-?-?-?-?-?-?-?- JV- no lof, vagi nal bleeding, or cramping. no complaints other than indigestion. starting pepcid. 02/24/23 -?-?-?-?-?-?-?-?-?-?-?-?- 38w 4d 199 lb 8 oz (+12 lb 8 oz) 120/79 Negative -?-?-?-?-?-?-?-?-?-?-?-?- Negative 122 38 -?-?-?-?-?-?-?-?-?-?-?-?- JV- no lof, vagi nal bleeding, or dec fm. Notes Visit Date: 01/27/23 Last Updated by: Hollie Ortega, q ROS Constitutional Constitutional: Denies change in weight, fatigue, fever(s), headache(s), poor appetite or weakness Eyes Eyes: Denies blurry vision, change in vision, seeing flashes or spots in vision ENT HEENT: Denies dizziness, headache(s), loss taste/smell or sore throat Cardiovascular Cardiovascular: Denies chest pain, dizziness, dyspnea, irregular heart rhythm, leg edema, palpitations, rapid heart rate or vomiting Respiratory/Chest Respiratory/Chest: Denies chest tightness, cough, dyspnea or breast pain Gastrointestinal Gastrointestinal: Denies abdominal pain, anorexia, constipation, cramping, diarrhea, hemorrhoids, vomiting or weight changes Genitourinary Genitourinary: Denies dysuria, flank pain, genital lesions, genital pain, ur inary frequency or urinary urgency Musculoskeletal Musculoskeletal: Denies back pain, difficulty walking, joint pain, limited range of motion, muscle cramps or numbness Integumentary Integumentary: Denies lesions or unusual bruising Neurologic Neurologic: Denies abnormal movements, abnormal speech, dizziness, numbness, seizure-like activity or syncope Psychiatric Psychiatric: Denies anxiety, behavioral changes, change in appetite, change in libido, cognitive impairment, confusion, depression, difficulty concentrating, hallucinations or suicidal thoughts Endocrine Endocrinology: Denies excessive sweating, polydipsia or polyuria Hematologic/Lymphatic Hematologic/Lymphatic: Denies easy bleeding, easy bruising or lymphadenopathy Allergic/Immunologic Allergic/Immunologic: Denies itchy eyes, lip swelling, seasonal rhinorrhea, rhinitis, throat swelling, tongue swelling, eczemia, wheezing or asthma Vital Signs Vital Signs Vital Signs: 02/28/23 06:05 02/28/23 05:46 02/28/23 05:46 Temperature 98.2 F Temperature Source Temporal Temporal Pulse Rate 100 Respiratory Rate 18 Blood Pressure 114/78 Blood Pressure Mean 90 BP Systolic BP Diastolic Blood Pressure Source Monitor Blood Pressure Position Semi-Fowlers Blood Pressure Location Right Arm Pulse Ox 99 99 Oxygen Delivery Method Room Air 02/28/23 05:46 Temperature Temperature Source Pulse Rate Respiratory Rate Blood Pressure 114/78 Blood Pressure Mean BP Systolic 114 BP Diastolic 78 Blood Pressure Source Blood Pressure Position Blood Pressure Location Pulse Ox Oxygen Delivery Method Weight Weight: 199 lb 11.821 oz Body Mass Index (BMI) 34.2 Physical Exam Const alert, oriented x3, no apparent distress and healthy appearing General Appearance: cooperative; Negative for anxious HEENT normocephalic Face and Sinus: normal facial exam Eyes EOMs intact bilaterally and no scleral icterus General Eye: normal appearance of both eyes Neck full ROM and supple Lymph Lymphatic: no lymphadenopathy noted Chest Chest: abnormal inspection of the chest Resp normal respiratory effort Effort and Inspection: able to speak in complete sentences Cardio regular rate GI soft to palpation and non-tender Inspection: gravid Palpation: soft; Negative for tender Back/Spine no CVA tenderness Extremity normal to inspection, full ROM and no clubbing, cyanosis or edema General Extremity: Negative for calf tenderness or edema Skin Lesions: no lesions Rashes: no rashes Psych mental status grossly normal Labs Labs Labs: Blood Type O NEGATIVE Antibody Screen POSITIVE Hct 33.6 % (37-47) L Hgb 10.8 g/dL (12.0-15.0) L Obstetrics US Syphilis Total Ab Non-reactive Rubella IgG Antibody Reactive (Nonreactive) Hep Bs Antigen Non-Reactive (Nonreactive) Chlamydia DNA (ROCIO) Negative (Negative) Neisseria gonorrhoeae DNA (ROCIO) Negative (Negative) HIV 1&2 Antibody Non-Reactive (Nonreactive) Glucose 1 Hr 50 gm 130 mg/dL (70-140) Group B Strep DNA Negative (Negative) Rhogam given: No Miscellaneous Test Assessment & Plan (1) Anti-D antibodies present during : COMMENT: veronica too weak to titer (2) Anemia: COMMENT: hg 10, starting iron 12/16/22 (3) Rh negative state in antepartum period: COMMENT: Rhogam 28 wk, pp and prn bleeding (4) Stillborn, abnormal: COMMENT: multiple health problems product of molar - spina bifida, heart defect, aneuploidy. nl NIPT and encouraged 4 mg folic acid daily. (5) History of 2 sections: COMMENT: RLTCS scheduled for 02/28 @ 7:10 with JV- scheduled in the case spontaneous labor does not happen. may even want to push back to 40 or 41 week. ( pt not decided) PLAN: After discussing the patient's diagnosis and treatment plan options, patient wishes to proceed with surgical management. I have discussed with the patient the risks, benefits, and alternatives of the procedure which include but are not limited to risks of anesthesia, bleeding, infection, possible damage to bowel, bladder, or surrounding vasculature which could lead to additional surgery to evaluate any complications. Patient agrees to procedure and wishes to proceed. (6) History of gestational hypertension: COMMENT: last 2018 (7) Supervision of high risk , antepartum: COMMENT: PRR , VIN 03/06/23(gender surprise) Nehemias Méndez([place] 21 weeks) Manav (8) : QUALIFIERS: Weeks of gestation: 38 weeks Qualified Code(s): Z3A.38 - 38 weeks gestation of COMMENT: GBS negative. NIPT low risk, declined carrier testing, RH negative, anatomy nl (9) History of molar : COMMENT: repeat hcg 6 weeks (10) Anxiety and depression: COMMENT: plan for wellbutrin after delivery
[2023-02-28] MEDS: Sodium Citrate/Citric Acid 30 ML UDC PO (07:13)
[2023-02-28] MEDS: Clindamycin 900 MG/50 ML BAG 75 MG IV (08:20)
[2023-02-28 08:35] LABS: Syphilis Antibodies Non-reactive
--- NOTE | 2023-02-28 08:45 | EX.PCM.OBRPT ---
Assessment & Plan (1) Anti-D antibodies present during : COMMENT: veronica too weak to titer (2) Anemia: COMMENT: hg 10, starting iron 12/16/22 (3) Rh negative state in antepartum period: COMMENT: Rhogam 28 wk, pp and prn bleeding (4) Stillborn, abnormal: COMMENT: multiple health problems product of molar - spina bifida, heart defect, aneuploidy. nl NIPT and encouraged 4 mg folic acid daily. (5) History of 2 sections: COMMENT: RLTCS scheduled for 02/28 @ 7:10 with JV- scheduled in the case spontaneous labor does not happen. may even want to push back to 40 or 41 week. ( pt not decided) (6) History of gestational hypertension: COMMENT: last 2018 (7) Supervision of high risk , antepartum: COMMENT: PRR , VIN 03/06/23(gender surprise) PC Nehemias Caldwell([place] 21 weeks) Manav (8) : QUALIFIERS: Weeks of gestation: 38 weeks Qualified Code(s): Z3A.38 - 38 weeks gestation of COMMENT: GBS negative. NIPT low risk, declined carrier testing, RH negative, anatomy nl (9) History of molar : COMMENT: repeat hcg 6 weeks (10) Anxiety and depression: COMMENT: plan for wellbutrin after delivery Maternal Data Information VIN Calculator Estimated Delivery Date Method Current WG Current Estimate 03/06/23 LMP (Certain) 39w 1d Final VIN: 03/06/23 Final VIN Source: LMP Gestational age: 39 weeks 1 days Details Operative Information Date of Procedure: 02/28/23 Pre-Operative Diagnosis: 32 y/o @ 39 weeks 1 day, prior sections, for repeat Post-Operative Diagnosis: 32 y/o @ 39 weeks 1 day, prior sections, for repeat, uterine artery laceration, broad ligament hematoma Classification: Scheduled Procedure Type: low transverse fire alarm installer #1: Lourdes Lira fire alarm installer #2: Ashley Wright Type of Anesthesia: Spinal Estimated Blood Loss: 1000cc Findings Description of Procedure: The patient is a 32 y/o who presented for repeat . Spinal anesthesia was placed without difficulty. Mcgill catheter was placed. The patient was placed in the dorsal supine position with leftward tilt. Patient was prepped and draped in the normal sterile fashion. Pfannenstiel skin incision was made with the scalpel and carried through to the underlying layer of fascia with the scalpel. Fascia was nicked in the midline and the incision extended laterally. The rectus bellies were dissected off superiorly and inferiorly with out complication both sharply and bluntly. The peritoneum was entered digitally. The incision was stretched and a low transverse uterine incision was made with the scalpel through the first layer of uterine tissue. The rest of the incision was opened digitally. The water bag was left in place and the 's head was delivered atraumatically followed by the anterior and posterior shoulders without complication the rest of the infant delivered. The cord was clamped and cut and the infant was handed off to awaiting nurse. The placenta was delivered manually immediately following and was noted to be intact and have a three-vessel cord. The uterus was exteriorized cleared of all clots and debris The left uterine artery was noted to be spewing blood rapidly. This was repaired using a 1-0 vicryl suture. The remaining incision was closed in a double layer closure using #1 Vicryl and #1 Monocryl. The ovaries and fallopian tubes were noted to be within normal limits. However, a large broad ligament hematoma was noted to be forming. A uterine artery ligation was performed using a 1-0 pds x 3 to slow the spread of the hematoma. The hematomoa was then watched for approximately 10 minutes prior to returning the uterus to the abdomen. The uterus was returned to the maternal abdomen and gutters were cleared of all clots and debris. The hematoma appeared to be enlarging more and the uterus was re-exteriorized. A 4th suture was placed more proximally around the uterine artery and this time the hematoma was noted to be getting smaller. The uterus was gained returned to the abdomen. Clark was applied over suture sites that were slightly oozing. The peritoneum was closed with 3-0 Monocryl in a running fashion. Gloves were changed prior to fascial closure. Fascia was closed with 0 PDS in a running fashion. Subcutaneous tissue was copiously irrigated and the skin was closed with 3-0 Monocryl in a subcuticular fashion. Mepilex dressing was applied without complication. Patient was taken to recovery in stable condition. It was discussed with the patient that based on the clinical information obtained during this encounter, combined with her history, at this time I would recommend repeat for future deliveries if further pregnancies are desired. Presentation: Positive for Vertex Amniotic Membrane Rupture Type: Spontaneous Amniotic Fluid Description: Clear Placental Delivery Description: Manual Removal Placenta Disposition: [facility] Cord Vessel Description: 3 Vessels Cord Entanglement: None A Gender: Male (1 minute): 8 (5 minute): 9 Delayed Cord Clamping: Yes Complications Risks of Surgery Discussed w/Patient: Bleeding, Anesthesia Risks, Need for Future C-Sections and Injury to surrounding structure(s) including bowel and bladder Multi Select Codes Urinary/Genital Urinary/Genital CPT Codes: 57146 Delivery global pkg and Other Procedure See Report
[2023-02-28] MEDS: Methylergonovine 0.2 MG/ML Ampul IM (08:55)
[2023-02-28] MEDS: Oxytocin 15 Units/NS 250ml 15 UNITS/250 ML IV.SOLN 83 UNITS IV (09:00)
[2023-02-28] MEDS: Ketorolac 30 MG/ML Syringe IV ×3 (09:53→21:20)
[2023-02-28 09:57] LABS: Absolute Lymphocyte Count 0.69 X10^3/uL (0.83-4.51); Absolute Neutrophil Count 2.5 X10^3/uL (2.0-7.7); Basophil# 0.01 X10^3/uL; Basophil% 0.3 % (0-1); Eosinophil# 0.01 X10^3/uL; Eosinophils% 0.3 % (0-5); Hematocrit 29.1 % (37-47); Hemoglobin 9.6 g/dL (12.0-15.0); Lymphocyte # 0.69 X10^3/ul (0.83-4.51); Lymphocyte % 20.2 % (19-41); Mean Corpuscular Hgb 29.4 pg (27.0-32.0); Mean Platelet Vol. 10.4 fl (6.2-12.0); Monocyte# 0.22 X10^3/uL; Monocyte% 6.5 % (0-10); NRBC Flagged by Analyzer 0 % (0-5); Neutrophil # 2.47 X10^3/uL (2.7-7.7); Neutrophil % 72.4 % (47-70); Platelet Count 110 K/mm3 (150-450); RBC Distribution Width CV 15.3 % (11.6-14.6); RBC Distribution Width SD 49.7 fl (35.1-43.9); Red Blood Count 3.27 M/mm3 (4.2-5.4); White Blood Count 3.4 K/mm3 (4.4-11.0)
[2023-02-28] MEDS: Senna/Docusate Sodium 1 Tablet PO (10:52)
[2023-02-28] MEDS: Ferrous Sulfate 325 MG Tablet PO (10:52)
[2023-02-28] MEDS: Famotidine 20 MG Tablet 40 MG PO ×2 (10:52→21:21)
--- NOTE | 2023-02-28 11:12 | NURSING ---
IBCLC round with mother. Mother reports baby nursed very well after delivery but had to go to SCN for hypoglycemia. Reports staff had her pump in the hospital with her other children and had an oversupply and would like to not pump unless she has to. Would like to nurse if at all possible. We discussed the importance of pumping if the baby does not nurse but also report that if baby nurses well in the SCN she may not have to pump and that I would let her requests known to SCN staff. Pump shown and reviewed but because the patient did just nurse her baby 1 hour ago she would like to wait to initiate pumping until 12:30/1pm. Patient reports she already has a pump at home for home use.
[2023-02-28] MEDS: 0.9% Saline Lock 10 ML Syringe IV (21:21)
[2023-02-28] MEDS: Enoxaparin 40 MG/0.4 ML Syringe SC (21:21)
[2023-03-01] VITALS (12 sets, daily range): BP systolic 89–121; BP diastolic 41–68; PULSE 62–78; RESP 15–106; TEMP 36.1–37.1; O2SAT 97–100
[2023-03-01] MEDS: Acetaminophen 500 MG Tablet 1000 MG PO ×4 (00:04→18:00)
[2023-03-01] MEDS: LACTATED RINGERS 500 ML 999 ML IV (00:45)
[2023-03-01] MEDS: 0.9% Saline Lock 10 ML Syringe IV ×2 (03:19→12:37)
[2023-03-01] MEDS: Ketorolac 30 MG/ML Syringe IV (03:19)
[2023-03-01 03:33] LABS: Hematocrit 27.8 % (37-47); Hemoglobin 8.8 g/dL (12.0-15.0); Mean Corp Hgb Conc 31.7 g/dL (32-36); Mean Corpuscular Hgb 28.7 pg (27.0-32.0); Mean Corpuscular Volume 90.6 fL (81-99); Platelet Count 101 K/mm3 (150-450); RBC Distribution Width CV 15.6 % (11.6-14.6); RBC Distribution Width SD 51.5 fl (35.1-43.9); Red Blood Count 3.07 M/mm3 (4.2-5.4); White Blood Count 5.3 K/mm3 (4.4-11.0)
[2023-03-01] MEDS: Ferrous Sulfate 325 MG Tablet PO (09:12)
[2023-03-01] MEDS: Naproxen 500 MG Tablet PO ×2 (09:12→17:28)
--- NOTE | 2023-03-01 09:34 | PN.OBGYN_ITS ---
Subjective Subjective Patient is laying in bed comfortably without complaints. She states that she slept on an off during the night. Lochia is mild and pain is minimal. Objective Data Objective Data Vital Signs: Vital Signs Temp Pulse Resp BP Pulse Ox O2 Del Method 98.2 F 67 16 106/56 L 97 Room Air 03/01/23 09:15 03/01/23 09:15 03/01/23 09:15 03/01/23 09:15 03/01/23 03:18 03/01/23 09:15 Oxygen Delivery Method Room Air Weight: 199 lb 11.821 oz Body Mass Index (BMI) 34.2 Intake & Output: Intake and Output for Last 24 Hours 02/27/23 02/28/23 03/01/23 23:59 23:59 23:59 Intake Total 3066 / 3066 500 / 500 Output Total 1400 / 1400 600 / 600 Balance 1666 / 1666 -100 / -100 Lab / Micro Data 03/01/23 03:25 Labs: Laboratory Results - last 24 hr 02/28/23 05:55: Crossmatch See Detail 02/28/23 09:40: WBC 3.4 L, RBC 3.27 L, Hgb 9.6 L, Hct 29.1 L, MCV 89.0, MCH 29.4, MCHC 33.0, RDW Std Deviation 49.7 H, RDW Coeff of Carline 15.3 H, Plt Count 110 L, MPV 10.4, Immature Gran % (Auto) 0.300, Neut % (Auto) 72.4 H, Lymph % (Auto) 20.2, [place] % (Auto) 6.5, Eos % (Auto) 0.3, Baso % (Auto) 0.3, Absolute Neuts (auto) 2.5, Absolute Lymphs (auto) 0.69 L, Nucleated RBC % 0, Screen NEGATIVE, Baby's Blood Type O POSITIVE, Baby's [place]IEGO NEGATIVE 03/01/23 03:25: WBC 5.3, RBC 3.07 L, Hgb 8.8 L, Hct 27.8 L, MCV 90.6, MCH 28.7, MCHC 31.7 L, RDW Std Deviation 51.5 H, RDW Coeff of Carline 15.6 H, Plt Count 101 L, MPV 11.0 ROS Constitutional Constitutional: Reports systems reviewed and no addt'l complaints, except as documented Cardiovascular Cardiovascular: Denies chest pain, dizziness, dyspnea or irregular heart rhythm Respiratory/Chest Respiratory/Chest: Denies cough, pain on inspiration or shortness of breath at rest Gastrointestinal Gastrointestinal: Denies abdominal pain, nausea or vomiting Genitourinary Genitourinary: Denies burning urination Musculoskeletal Musculoskeletal: Denies muscle cramps, muscle spasms or muscle weakness Neurologic Neurologic: Denies confusion, dizziness, headache(s) or lack of coordination Psychiatric Psychiatric: Denies anxiety, behavioral changes or depression Physical Exam HEENT normocephalic Resp normal respiratory effort and normal air movement GI soft to palpation, non-tender and non-distended Rectal Exam: other Other Details: Incision is clean, dry, and intact no CVA tenderness Extremity normal to inspection General Extremity: edema bilateral (trace ) Assessment & Plan (1) Anemia: COMMENT: hg 10, starting iron 12/16/22 (2) Status post delivery: PLAN: Plan s/p LTCS PPD #1 1. routine post care 2. breast feeding- support given 3. rh positive 4. rubella immune 5. acute blood loss anemia- hg down to 8.8 and patient lost 1000 blood with hematoma of left uterine artery. transfusing 2 units now.
[2023-03-01] MEDS: Senna/Docusate Sodium 1 Tablet PO (10:05)
[2023-03-01] MEDS: Famotidine 20 MG Tablet 40 MG PO ×2 (10:05→22:18)
[2023-03-01] MEDS: Prenatal Vits Tablet 1 TABLET PO (12:35)
[2023-03-01 18:32] LABS: Absolute Lymphocyte Count 0.83 X10^3/uL (0.83-4.51); Absolute Neutrophil Count 5.2 X10^3/uL (2.0-7.7); Basophil# 0.01 X10^3/uL; Basophil% 0.2 % (0-1); Eosinophil# 0.03 X10^3/uL; Eosinophils% 0.5 % (0-5); Hematocrit 33.8 % (37-47); Hemoglobin 10.7 g/dL (12.0-15.0); Lymphocyte # 0.83 X10^3/ul (0.83-4.51); Lymphocyte % 12.7 % (19-41); Mean Corp Hgb Conc 31.7 g/dL (32-36); Mean Corpuscular Hgb 29.4 pg (27.0-32.0); Mean Corpuscular Volume 92.9 fL (81-99); Mean Platelet Vol. 11.2 fl (6.2-12.0); Monocyte% 6.1 % (0-10); NRBC Flagged by Analyzer 0 % (0-5); Neutrophil # 5.22 X10^3/uL (2.7-7.7); Neutrophil % 79.7 % (47-70); Platelet Count 121 K/mm3 (150-450); RBC Distribution Width CV 15.5 % (11.6-14.6); RBC Distribution Width SD 52.3 fl (35.1-43.9); Red Blood Count 3.64 M/mm3 (4.2-5.4); White Blood Count 6.5 K/mm3 (4.4-11.0)
[2023-03-02] MEDS: Acetaminophen 500 MG Tablet 1000 MG PO ×3 (00:06→13:08)
[2023-03-02] MEDS: 0.9% Saline Lock 10 ML Syringe IV (00:13)
[2023-03-02] MEDS: Naproxen 500 MG Tablet PO ×2 (02:15→11:29)
[2023-03-02 02:48] VITALS: BP 115/61; PULSE 69; RESP 16; O2SAT 98
--- NOTE | 2023-03-02 08:15 | PN.OBGYN_ITS ---
Subjective Subjective Patient doing well without complaints. Tolerating PO. Ambulating and voiding without difficulty. feeding well. Denies chest pain, shortness of breath, calf pain/swelling, fevers, chills, lightheadedness. Objective Data Objective Data Vital Signs: Vital Signs Temp Pulse Resp BP Pulse Ox O2 Del Method 97.2 F L 69 16 115/61 98 Room Air 03/01/23 19:46 03/02/23 02:48 03/02/23 02:48 03/02/23 02:48 03/02/23 02:48 03/02/23 02:48 Oxygen Delivery Method Room Air Weight: 199 lb 11.821 oz Body Mass Index (BMI) 34.2 Intake & Output: Intake and Output for Last 24 Hours 02/28/23 03/01/23 03/02/23 23:59 23:59 23:59 Intake Total 3066 / 3066 1400 / 1400 Output Total 1400 / 1400 600 / 600 Balance 1666 / 1666 800 / 800 Lab / Micro Data 03/01/23 18:15 Labs: Laboratory Results - last 24 hr 02/28/23 05:55: Crossmatch See Detail 03/01/23 18:15: WBC 6.5, RBC 3.64 L, Hgb 10.7 L, Hct 33.8 L, MCV 92.9, MCH 29.4, MCHC 31.7 L, RDW Std Deviation 52.3 H, RDW Coeff of Carline 15.5 H, Plt Count 121 L, MPV 11.2, Immature Gran % (Auto) 0.800, Neut % (Auto) 79.7 H, Lymph % (Auto) 12.7 L, [place] % (Auto) 6.1, Eos % (Auto) 0.5, Baso % (Auto) 0.2, Absolute Neuts (auto) 5.2, Absolute Lymphs (auto) 0.83, Nucleated RBC % 0 ROS Constitutional Constitutional: Reports systems reviewed and no addt'l complaints, except as documented Cardiovascular Cardiovascular: Reports systems reviewed and no addt'l complaints, except as documented Respiratory/Chest Respiratory/Chest: Reports systems reviewed and no addt'l complaints, except as documented Gastrointestinal Gastrointestinal: Reports systems reviewed and no addt'l complaints, except as documented Physical Exam Const alert, oriented x3 and no apparent distress HEENT Head and Scalp: atraumatic Resp normal respiratory effort GI soft to palpation and non-tender Inspection: incision intact, healing well and drainage (none) Bimanual Exam - Vag & Uterus: uterus non-tender Uterus Palpation: uterus fundus firm (below Umbilicus) Assessment & Plan (1) Status post delivery: PLAN: Plan s/p LTCS PPD # 1. routine post care 2. breast feeding- support given 3. rh neg 4. rubella immune
--- NOTE | 2023-03-02 08:16 | PCM.DC ---
Discharge Instructions Diet Discharge Diet: No restrictions Activity Discharge Activity: May Not Drive (for 2 weeks or while taking narcotic pain medications.), May Shower and May Take a Tub Bath (in 7 days) May shower in (days): 0 May resume sexual activity in: 4-6 weeks Weight Bearing Status: Full weight bearing Lifting Restrictions: 20 pounds Dressing / Incision Call your doctor if your incision/area has: Continuous Slow Oozing, Sudden Increased Bleeding, Increased Pain/ Swelling, Increased Redness and Foul Smelling Discharge Call your doctor if you observe: Fever of 101 or Higher and Using more than 1 pad per hour (for 2 hours) Suture Line Care: Avoid Pulling/Pushing and Avoid Pinching/Bending Cleanse incision/area with: Soap & Water and Keep Dressing Clean & Dry Follow Up Care Please Follow Up With: Bere Dee MD When: Call [phone] to make an appointment for an incision check in 1-2 weeks. Test Results: Test results from this visit will be discussed in further detail at your follow-up appointment, if applicable. Discharge Plan Admission Admit Date/Time: 02/28/23 05:30 Attending Provider: Hollie Ortega Primary Care Provider: Tam Bailey Discharge Orders/Prescriptions Prescriptions: New oxycodone-acetaminophen [Percocet] 5-325 mg tablet 1 tab PO Q6H PRN (Reason: pain) 7 Days Qty: 20 0RF naproxen [naproxen] 500 mg tablet 500 mg PO BID PRN PRN (Reason: Pain) Qty: 30 1RF bupropion HCl [Wellbutrin XL] 150 mg tablet extended release 24 hr 150 mg PO DAILY Qty: 30 12RF No Action [facility] 28-1-300 mg capsule PO ferrous sulfate [FeroSul] 325 mg (65 mg iron) tablet 325 mg PO DAILY Qty: 30 6RF folic acid 1 mg tablet 3 mg PO DAILY folic acid 1 mg tablet 3 mg PO DAILY Qty: 90 3RF famotidine [Pepcid] 40 mg tablet 40 mg PO BID Qty: 60 3RF Referrals / Follow Up: Tam Bailey DO [Primary Care Provider] - Disposition Disposition (needs filled in before D/C Order can be placed): Home, Self Care
[2023-03-02 08:34] VITALS: BP 110/65; PULSE 66; RESP 16; TEMP 36.3; O2SAT 96
[2023-03-02] MEDS: Ferrous Sulfate 325 MG Tablet PO (08:42)
[2023-03-02] MEDS: Senna/Docusate Sodium 1 Tablet PO (11:29)
[2023-03-02] MEDS: Prenatal Vits Tablet 1 TABLET PO (11:29)
[2023-03-02] MEDS: Enoxaparin 40 MG/0.4 ML Syringe SC (11:44)
[2023-03-02] MEDS: Famotidine 20 MG Tablet 40 MG PO (11:44)
[2023-03-02 13:46] VITALS: BP 112/71; PULSE 68; RESP 16; TEMP 36.4; O2SAT 98
--- NOTE | 2023-03-02 14:30 | CASEMGMT ---
Social Work Assessment Labor and Delivery Unit Patient Address:[address] [place] [address] Phone number: [phone] Date of Referral: 03/01/23 Time of Referral:? 0830 Referred By: Bedside Nuring Staff/ charge nurse Date of Intervention: ??03/02/23 Time of Intervention:? 1300 Reason for Referral:?Mental health, PPD Sw completed chart review. Sw informed by bedside nursing staff and charge nurse that mother of baby (CASSY Castellanos) has history of depression and would benefit from meeting with social work. Sw presented to bedside and introduced self to MOB and father of baby (FOB- Manav). Sw explained reason for sw involvement. Sw completed psychosocial assessment. Sw asked FOB to step out of room momentarily so that MOB could complete the [place] Depression Scale. FOB left room respectfully and willingly without problem. History obtained from: medical records, MOB and FOB. Household composition: Currently residing in the home is AHSAN, PATRICIA and their two older children (Javi, : 10/20/2014 and Nehemias, : 02/23/2017). Now baby boy will also be living with family. Parents state that they have adequate housing, no concerns at this time. Patient's parent/guardian status:?MOB and FOB are . Parents state that they met through mutual friends and have been together for almost 10 years. While meeting with MOB privately she denies any concerns or issues with domestic violence or intimate partner violence. ? Medical History: AHSAN received routine care throughout her with Hailey. AHSAN is 4, para 2- now 3. MOB states that she had a 21 week loss in between Nehemias and baby. MOB states that following that experience she was extremely nervous and scared during this whole . AHSAN delivered baby boy on 02/28/23 via at 39 weeks gestation. Baby boy, named Tawanda Phipps was born weighing 9lb 11 ounces and had an of 9. Baby boy has been admitted to the Special Care Nursery due to sugar levels. MOB states that it has been challenging having baby admitted to Special Care instead of rooming in with her. MOB states that she is breast feeding and it is going well. Educational Status:?Both parents are high school graduates. AHSAN states that she also attended [employer] and received her medical billing certificate. PATRICIA states that he went to trade school and is a welder experimental. Parents deny issues with learning, reading and comprehension. Financial Status: PATRICIA is gainfully employed. PATRICIA works as a systems trainer for [employer]. PATRICIA states that he is able to utility worker driver. AHSAN states that during her she was providing in home childcare, however she is no longer going to do that now that the baby has been born. AHSAN states that she would like to do something with the company that PATRICIA works for. Infant Supplies:?Parents state that they have obtained all necessary baby items including: car seat, safe sleep space, clothes, diapers, wipes and breast pump. ? Childcare/Caregiver(s):? MOB states that she will be the primary caregiver to baby, along with PATRICIA when he is not at work. MOB states that if they need help with childcare they have some family members who will be able to assist. Transportation:?? Both parents have their drivers license. AHSAN states that they did have two vehicles, however they are now down to one. AHSAN states that although a lot has happened in a short period of time, they are able to get another vehicle and things are ok. No barriers to transportation at this time, parents working on obtaining a second vehicle. Programs/Agencies Involved: ???AHSAN states that she is connected to Medicaid for insurance. AHSAN reports that she is not going to get connected to WIC. Sw encouraged parents to look into services through [facility] due to baby's blood sugars. Parents said they would consider this Children Services/Legal Issues:??? No former involvement with Children's Services, no issues or concerns today warranting a referral to be made. Behavioral Health Issues: ??Mental Health History:??AHSAN states that she has been diagnosed with anxiety, depression and has experienced Depression in the past. AHSAN states that her symptoms included: anger, rages, leashing out at other people (specifically FOB) and then isolating herself from everyone, and then guilt. AHSAN completed the [place] Deperssion Scale, her score was a 23. Chelo educated AHSAN on what her score represents and asked AHSAN if she is receptive to getting connected to community mental health supports. AHSAN stated that she has never done counseling in the past because it is hard for her to open up to people. MOB stated that she knows that it is something that would help her and actually she and FOB are considering going together. Sw provided MOB with list of mental health resources available to her. MOB appreciative of information provided. MOB told sw that PATRICIA has come a long way, because when they first started dating he told her he did not believe that anxiety was a real thing. MOB stated that he is normally against her being on medication, however he is really supportive of it at this time. MOB stated that she got started on Wellbutrin today. MOB stated that she hopes that now that the baby is born she will not have extreme fear and worry. Sw provided much support and education. ? Substance Use History:?MOB denies substance use history prior to and during . ? Family History: MOB states that there is no mental health or substance use history on either side of the family ? Drug Screens: No urine screens observed in chart review. Family/Social Stressors:? AHSAN stated that her mental health is one of her biggest stressors. AHSAN was tearful and stated that it is something she has always battled with. MOB stated that the family has had several expenses come up that they were not planning on needing to tend to, but they have the money and everything is ok. Sw provided a lot of active listening, reflection and education. Support Systems: AHSAN states that she and FOB tend to stick to each other and are each other's biggest supports. MOB stated that they each have some family members who are also supportive, but normally they lean on each other and that is what works for them. Depression/Shaken Baby/Safe Sleeping:? Chelo educated parents at length regarding signs and symptoms of baby blues, depression, anxiety and psychosis. MOB denies any SI prior to or during . Sw educated parents on shaken baby prevention and ABCs of safe sleep. Parents expressed understanding. ASSESSMENT:? Parents were very engaged during psychosocial assessment. Parents were receptive to support, education and resources provided by social work. Parents would benefit from getting connected to community mental health supports. Parents were observed to have a very close lux with each other. Baby in the special care nursery due to blood sugars and parents appear to be managing that well. PLAN:?MOB to be discharged when medically ready. Baby boy will be discharged to parents when medically ready. ?No other services requested or indicated. Audrey Ruiz, WASTE WATER TREATMENT PLANT OPERATOR, THEATRICAL DRESSER
--- NOTE | 2023-03-14 13:58 | CASEMGMT ---
Social Work Sw contacted patient as follow up from her recent admission to Labor and Delivery following the of her baby boy, Tawanda. When sw met with patient following her delivery, she completed an [place] Depression Scale and her score was a 23. Patient answered today when sw called. Sw asked patient how she is doing since being discharged from hospital. Patient stated that the first week home she struggled and cried a lot. Patient admitted to spending a lot of time isolated in her room as well, but that she is doing better this week. Patient states that this week she has been feeling much more calm and has not been crying. Sw discussed/ educated about signs and symptoms of baby blues and depression. Patient stated that she thinks she may have had the blues, but feels much more regulated at this time. Patient states that she thinks a lot of that is from the help of her medication. Patient reports that she meets with Dr. Dee tomorrow to discuss medications and talk about her mental health/ healing from her . Sw encouraged patient to continue to take care of her mental health and to talk to her natural supports that she has in place. Patient states that she is being mindful of her feelings, emotions and how she responds to certain things. Patient thanked sw for calling and touching base with her. Sw encouraged patient to call into social work if she has any additional needs, questions or concerns. No futher needs at this time. Audrey Ruiz, HOUSE CARPENTER, NAT INSTRUCTOR
== END 2023-03-02 13:50 | disposition home or self-care (01) | DRG 540 ==
PROVIDERS: Admitting Provider Obstetrics & Gynecology; PCP Family Medicine; Referring Provider Obstetrics & Gynecology; Visit Provider Obstetrics & Gynecology
PROC: 10D00Z1 Extraction of Products of Conception, Low, Open Approach (ICD-10-PCS; CPT 59514; principal; 2023-02-28 07:15)
DX: O34.211 Maternal care for low transverse scar from previous cesarean delivery (principal); D62 Acute posthemorrhagic anemia; O90.81 Anemia of the puerperium; Z37.0 Single live birth; O26.23 Pregnancy care for patient with recurrent pregnancy loss, third trimester; O26.893 Other specified pregnancy related conditions, third trimester; Z67.41 Type O blood, Rh negative; O36.0130 Maternal care for anti-D [Rh] antibodies, third trimester, not applicable or unspecified; O99.892 Other specified diseases and conditions complicating childbirth; N83.7 Hematoma of broad ligament; Z3A.39 39 weeks gestation of pregnancy; Z87.891 Personal history of nicotine dependence; Z87.59 Personal history of other complications of pregnancy, childbirth and the puerperium
CPT/HCPCS: 59025; 59050; 85025; 85027; 85461; 86780; 86850; 86900; 86901; 86920; 99221; J7040; J7120; P9016; A4216; G0378; J2405; J2790

== ENCOUNTER → 2024-04-01 | Outpatient (CLI) | payer SELFPAY ==
--- NOTE | 2024-04-01 13:15 | RAD_ITS ---
STUDY: X-RAY - LUMBAR SPINE REASON FOR EXAM: Female, 34 years old. Low back pain TECHNIQUE: 5 view(s) of the lumbar spine were obtained. COMPARISON: October 19, 2020 FINDINGS: Normal lumbar lordosis. There is no substantial scoliosis. There is a normal alignment of the vertebrae. Normal vertebral bodies and endplates. Minimal disc degeneration at L5-S1 without significant osteophytes, slightly progressed since the prior study. Normal soft tissues. RAD/L/S Spine Min 4 Views IMPRESSION: Minimal new disc degeneration at L5-S1. Electronically Signed: Saud Naylor MD at 13:33 EDT ,
== END | disposition home or self-care (01) ==
PROVIDERS: PCP Family Medicine; Referring Provider Family Medicine; Visit Provider Family Medicine
DX: M54.50 Low back pain, unspecified (principal)
CPT/HCPCS: 72110

== ENCOUNTER → 2025-03-10 | Outpatient (CLI) | payer OTHER, SELFPAY | END | disposition home or self-care (01) | LOC: LABSPEC 15:18 | PROVIDERS: PCP Family Medicine; Visit Provider Family Medicine | DX: R30.0 Dysuria (principal) | CPT/HCPCS: 87077; 87086; 87088; 87186 ==